=== PATIENT | male | born 1990 | race Two or more races ===

== ENCOUNTER 2023-05-30 16:20 | Emergency (ER) | payer SELFPAY ==
[2023-05-30] MEDS ORDERED: Tetracaine HCl/PF 0.5% 4 ML Bottle EYEBOTH ONE (16:21)
[2023-05-30] MEDS ORDERED: Acetaminophen 325 MG Tab PO ONE (16:33)
[2023-05-30] MEDS ORDERED: Diphtheria,Pertussis(Acell),Tetanus Vaccine 0.5 ML Syringe IM ONE (16:33)
[2023-05-30] MEDS ORDERED: Ibuprofen 400 MG Tab PO ONE (16:33)
== END 2023-05-30 17:48 | disposition home or self-care (01) ==
LOC: MW.ED 16:20
DX: H16.001 Unspecified corneal ulcer, right eye (principal)
CPT/HCPCS: 90471; 90715; 99283; A9270; J3490